=== PATIENT | female | born 1965 | race Caucasian/White ===

== ENCOUNTER 2016-06-02 09:59 | Day surgery (SDC) | payer MEDICARE, MEDICAID ==
[~2016-06-02] VITALS: Ht 162.6 cm; Wt 179.5 kg
[2016-06-02] VITALS (9 sets, daily range): BP systolic 111–150; BP diastolic 65–88; PULSE 55–76; TEMP 97.8
[~2016-06-02 09:59] MED LIST: ABILIFY 10MG TA10 MG PO; ALPRAZOLAM0.25 MG PO; BUDEPRION XL150 MG PO; CALCIUM1 CAP PO; CINNAMON500 MG PO; COUMADIN1 MG PO; COUMADIN4 MG PO; CRESTOR 10MG10 MG PO; DIFLUCAN200 MG PO; DITROPAN XL 5MG5 M1 PO; EFFIENT10 M1 PO; FUROSEMIDE40 MG PO; GABAPENTIN600 MG PO; GLUCOPHAGE500 MG/TAB PO; HAIR VITAMINS E1 TAB PO; HAIRSKINNAILS PO; HUMALOG100 U/ML SC; KLONOPIN 0.5MG0.5 MG PO; LANTUS100 U/ML SQ; LIPITOR 40MG TA40 MG PO; LISINOPRIL AND1 TAB PO; LISINOPRIL10 MG PO; LOMOTIL TAB 01 UDTAB PO; LOPRESSOR 550 MG/TAB PO; MAG-OX 400400 MG/TAB PO; MEDI-FIRST ASP325 MG PO; METFORMIN HCL500 M1 PO; NAPROXEN500 M1 PO; NEURONTIN300 MG/CAP PO; NEURONTIN600 MG/TAB PO; NIASPAN 500MG500 MG PO; NITROQUICK0.4 MG SL; OMEPRAZOLE40 MG PO; OXYBUTYNIN ER5 MG PO; PAXIL20 MG PO; PLAVIX 75MG TAB75 MG PO; TRILIPIX 135MG PO; XANAX .25M0.25 MG/TA PO; ZESTRIL 10MG10 MG PO; [UNRECOGNIZED DRUG - OTHER] PO
[2016-06-02 10:32] LABS: HEMATOCRIT 43.7 % (37.0-47.0); HEMOGLOBIN 13.9 g/dl (12.5-16.0); MEAN CELL VOLUME 83 fl (80.0-100.0); MEAN CORPUSCULAR HEMOGLOBIN 26 pg (27.0-31.0); MEAN CORPUSCULAR HGB CONC 32 g/dl (33.0-37.0); MEAN PLATELET VOLUME 10.8 fl (7.4-10.4); PLATELET COUNT 259 K/mm3 (130-400); RED BLOOD COUNT 5.27 M/mm3 (4.10-5.30); REDCELL DISTRIBUTION WIDTH-CV 14.1 % (11.5-14.5); WHITE BLOOD COUNT 6.5 K/mm3 (4.8-10.8)
[2016-06-02 10:41] LABS: CALCIUM 9.5 mg/dL (8.4-10.2); CREATININE, serum 0.76 mg/dL (0.52-1.25); POTASSIUM 4.7 mmol/L (3.4-5.0)
[2016-06-02 10:47] LABS: INR 1.2 (0.8-3.0)
[2016-06-02] MEDS ORDERED: PRILOSEC 20MG20 MG PO (12:29)
[2016-06-02] MEDS ORDERED: WELLBUTRIN XL150 MG PO ×2 (12:31→12:32)
[2016-06-02] MEDS ORDERED: CALCIUM 600MG+D1 TAB PO (12:34)
[2016-06-02] MEDS ORDERED: PAXIL 10MG10 MG PO (12:38)
[2016-06-02] MEDS ORDERED: MULTI VITAMINS1 TAB PO (12:41)
[2016-06-02] MEDS ORDERED: FLEXERIL5 MG PO (12:42)
[2016-06-02] MEDS ORDERED: DRISTAN 12-HOUR15 ML NS (12:43)
[2016-06-02] MEDS ORDERED: ELOCON0.1% TP (12:44)
[2016-06-02] MEDS ORDERED: ANUSOL HC CREAM30 GM TP (12:46)
== END 2016-06-02 16:55 | disposition home or self-care (01) ==
LOC: EUO 09:59 → COL.RAD 11:00 → EUO 16:55
PROVIDERS: Internal Medicine Cardiovascular Disease
DX: I25.10 Atherosclerotic heart disease of native coronary artery without angina pectoris (principal); I10 Essential (primary) hypertension; E78.2 Mixed hyperlipidemia; G47.33 Obstructive sleep apnea (adult) (pediatric); R07.89 Other chest pain; Z87.891 Personal history of nicotine dependence; Z95.5 Presence of coronary angioplasty implant and graft; Z79.899 Other long term (current) drug therapy; Z79.4 Long term (current) use of insulin
CPT/HCPCS: C1894; J1644; J3010; Q9967

== ENCOUNTER 2018-02-26 19:38 | Inpatient (IN) | payer MEDICARE, MEDICAID ==
[2018-02-26] VITALS (167 sets, daily range): BP systolic 116–118; BP diastolic 75–82; PULSE 104–105; TEMP 98.7; O2SAT 63–100
[~2018-02-26] VITALS: Ht 167.6 cm; Wt 182.9 kg
[~2018-02-26 19:38] MED LIST changes: +ANUSOL HC CREAM30 GM TP; +CALCIUM 600MG+D1 TAB PO; +DRISTAN 12-HOUR15 ML NS; +ELOCON0.1% TP; +FLEXERIL5 MG PO; +MULTI VITAMINS1 TAB PO; +PAXIL 10MG10 MG PO; +PRILOSEC 20MG20 MG PO; +WELLBUTRIN XL150 MG PO
[2018-02-26] MEDS ORDERED: LOMOTIL 0.025 M1 TAB PO (21:23)
[2018-02-26] MEDS ORDERED: NORCO 325 MG-7.1 TAB PO (21:23)
[2018-02-26] MEDS ORDERED: FLEXERIL 1010 MG/TAB PO (21:26)
[2018-02-26] MEDS ORDERED: GLUCOPHAGE XR500 M1 PO (21:27)
[2018-02-26] MEDS ORDERED: [UNRECOGNIZED DRUG - OTHER] SQ (21:35)
[2018-02-26] MEDS ORDERED: DILTIAZEM CD PO (21:39)
[2018-02-26 22:44] LABS: HEMATOCRIT 26.8 % (37.0-47.0); HEMOGLOBIN 8.4 g/dl (12.5-16.0)
[2018-02-26 23:10] LABS: TROPONIN-I 0.41 ng/mL (0.000-0.034)
[2018-02-27] VITALS (1050 sets, daily range): BP systolic 96–135; BP diastolic 49–78; PULSE 96–114; TEMP 97.3–99.8; O2SAT 87–100
[2018-02-27 04:27] LABS: AMORPHOUS CRYSTAL Present /uL; PH 5 (5-8); SQUAMOUS EPITHELIAL 0-2 /hpf; URINE APPEARANCE Turbid; URINE BACTERIA None Seen /hpf; URINE BILIRUBIN Negative (NEGATIVE); URINE BLOOD Negative (NEGATIVE); URINE COLOR Yellow; URINE GLUCOSE Negative (NEGATIVE); URINE KETONE Negative (NEGATIVE); URINE LEUKOCYTE ESTERASE 2+ (NEGATIVE); URINE NITRATE Negative (NEGATIVE); URINE PROTEIN(semi-quant) Negative (NEGATIVE); URINE UROBILINOGEN Negative (NEGATIVE)
[2018-02-27 05:26] LABS: BASO % 0.2 % (0.0-2.0); EOS % 0.1 % (0-4.0); GRAN # 12.5 (1.4-6.5); GRAN % 72.2 % (42.2-75.2); LYMPH # 3.5 (1.2-3.4); MEAN CELL VOLUME 81 fl (80.0-100.0); MEAN CORPUSCULAR HGB CONC 32 g/dl (33.0-37.0); MEAN PLATELET VOLUME 10.7 fl (7.4-10.4); MONO # 1.2 (0.1-0.6); MONO % 6.9 % (1.7-9.3); PLATELET COUNT 260 K/mm3 (130-400); RED BLOOD COUNT 3.28 M/mm3 (4.10-5.30); REDCELL DISTRIBUTION WIDTH-CV 15.1 % (11.5-14.5)
[2018-02-27 05:27] LABS: HEMATOCRIT 26.5 % (37.0-47.0); HEMOGLOBIN 8.4 g/dl (12.5-16.0); MEAN CORPUSCULAR HEMOGLOBIN 26 pg (27.0-31.0)
[2018-02-27 05:39] LABS: ALBUMIN 2.5 gm/dL (3.5-5.0); BILIRUBIN,TOTAL 0.4 mg/dL (0.0-1.0); CALCIUM 6.9 mg/dL (8.4-10.2); POTASSIUM 4.5 mmol/L (3.4-5.0); TOTAL PROTEIN 5.3 gm/dL (6.4-8.2)
[2018-02-27 05:46] LABS: MAGNESIUM 1.6 mg/dL (1.6-2.3)
[2018-02-27 06:09] LABS: TROPONIN-I 1.97 ng/mL (0.000-0.034)
[2018-02-27 06:22] LABS: COLLECTION METHOD CATHETER
[2018-02-27 11:59] LABS: HEMATOCRIT 27.4 % (37.0-47.0); HEMOGLOBIN 8.6 g/dl (12.5-16.0)
[2018-02-27 17:39] LABS: HEMATOCRIT 24.6 % (37.0-47.0); HEMOGLOBIN 7.7 g/dl (12.5-16.0)
[2018-02-28] VITALS (554 sets, daily range): BP systolic 112–136; BP diastolic 54–91; PULSE 67–98; TEMP 97.4–99.1; O2SAT 83–99
[2018-02-28 00:31] LABS: HEMATOCRIT 26.5 % (37.0-47.0); HEMOGLOBIN 8.5 g/dl (12.5-16.0)
[2018-02-28 05:48] LABS: MEAN CELL VOLUME 83 fl (80.0-100.0); MEAN CORPUSCULAR HGB CONC 31 g/dl (33.0-37.0); MEAN PLATELET VOLUME 10.2 fl (7.4-10.4); PLATELET COUNT 182 K/mm3 (130-400); RED BLOOD COUNT 3.12 M/mm3 (4.10-5.30); REDCELL DISTRIBUTION WIDTH-CV 15.4 % (11.5-14.5)
[2018-02-28 05:55] LABS: HEMATOCRIT 25.9 % (37.0-47.0); HEMOGLOBIN 8.1 g/dl (12.5-16.0); MEAN CORPUSCULAR HEMOGLOBIN 26 pg (27.0-31.0)
[2018-02-28 05:59] LABS: ALBUMIN 2.6 gm/dL (3.5-5.0); BILIRUBIN,TOTAL 0.5 mg/dL (0.0-1.0); CALCIUM 7.5 mg/dL (8.4-10.2); CREATININE, serum 0.81 mg/dL (0.52-1.25); MAGNESIUM 1.6 mg/dL (1.6-2.3); POTASSIUM 4.3 mmol/L (3.4-5.0); TOTAL PROTEIN 5.3 gm/dL (6.4-8.2)
[2018-02-28 06:13] LABS: TROPONIN-I 6.2 ng/mL (0.000-0.034)
[2018-02-28 06:36] LABS: INR 1.1 (0.8-3.0); PROTHROMBIN TIME 12.8 SECONDS (9.7-12.8)
[2018-02-28 07:10] LABS: BAND 1 % (0-10); EOSINOPHIL 3 % (0-4); LYMPHOCYTE 22 % (20.0-51.0); NEUTROPHILS 67 % (42.0-75.2)
[2018-02-28 07:11] LABS: HYPOCHROMIA 2+; PLATELET ESTIMATE NORMAL (NORMAL)
[2018-02-28 11:29] LABS: HEMATOCRIT 26.2 % (37.0-47.0); HEMOGLOBIN 8.1 g/dl (12.5-16.0)
[2018-02-28 17:28] LABS: HEMOGLOBIN 8.1 g/dl (12.5-16.0)
[2018-02-28 23:32] LABS: HEMATOCRIT 24.5 % (37.0-47.0); HEMOGLOBIN 7.8 g/dl (12.5-16.0)
[2018-03-01] VITALS (491 sets, daily range): BP systolic 36–153; BP diastolic 54–82; PULSE 63–76; TEMP 97.3–99.5; O2SAT 86–100
[2018-03-01 06:15] LABS: BASO % 0.3 % (0.0-2.0); EOS # 0.3 (0.0-0.7); EOS % 3.3 % (0-4.0); GRAN # 4.6 (1.4-6.5); GRAN % 48.5 % (42.2-75.2); LYMPH # 3.7 (1.2-3.4); LYMPH % 38.2 % (20.0-51.0); MEAN CELL VOLUME 84 fl (80.0-100.0); MEAN CORPUSCULAR HGB CONC 31 g/dl (33.0-37.0); MEAN PLATELET VOLUME 10.9 fl (7.4-10.4); MONO # 0.9 (0.1-0.6); MONO % 9.1 % (1.7-9.3); PLATELET COUNT 176 K/mm3 (130-400); RED BLOOD COUNT 3.25 M/mm3 (4.10-5.30); REDCELL DISTRIBUTION WIDTH-CV 15.7 % (11.5-14.5)
[2018-03-01 06:18] LABS: HEMATOCRIT 27.2 % (37.0-47.0); HEMOGLOBIN 8.5 g/dl (12.5-16.0); MEAN CORPUSCULAR HEMOGLOBIN 26 pg (27.0-31.0)
[2018-03-01 06:30] LABS: CALCIUM 8.1 mg/dL (8.4-10.2); CREATININE, serum 0.85 mg/dL (0.52-1.25); POTASSIUM 4.1 mmol/L (3.4-5.0)
[2018-03-01 06:49] LABS: TROPONIN-I 3.2 ng/mL (0.000-0.034)
[2018-03-02 00:45] VITALS: TEMP 98.3
[2018-03-02 01:17] VITALS: BP 111/52; PULSE 71; TEMP 97.7
[2018-03-02 04:41] VITALS: BP 122/59; PULSE 65; TEMP 97.5
[2018-03-02 06:11] LABS: BASO % 0.1 % (0.0-2.0); EOS # 0.3 (0.0-0.7); GRAN # 5.7 (1.4-6.5); GRAN % 57.1 % (42.2-75.2); LYMPH % 29.9 % (20.0-51.0); MEAN CELL VOLUME 84 fl (80.0-100.0); MEAN CORPUSCULAR HGB CONC 31 g/dl (33.0-37.0); MEAN PLATELET VOLUME 10.8 fl (7.4-10.4); MONO # 0.9 (0.1-0.6); MONO % 9.2 % (1.7-9.3); PLATELET COUNT 186 K/mm3 (130-400); RED BLOOD COUNT 3.23 M/mm3 (4.10-5.30); REDCELL DISTRIBUTION WIDTH-CV 15.7 % (11.5-14.5)
[2018-03-02 06:20] LABS: CALCIUM 8.3 mg/dL (8.4-10.2); CREATININE, serum 1.23 mg/dL (0.52-1.25); MAGNESIUM 1.6 mg/dL (1.6-2.3); POTASSIUM 3.9 mmol/L (3.4-5.0)
[2018-03-02 06:24] LABS: HEMOGLOBIN 8.4 g/dl (12.5-16.0); MEAN CORPUSCULAR HEMOGLOBIN 26 pg (27.0-31.0)
[2018-03-02 07:00] VITALS: BP 133/56; PULSE 75; TEMP 98.5
[2018-03-02 11:00] VITALS: BP 120/52; PULSE 76; TEMP 98.9
[2018-03-02] MEDS ORDERED: ASPIRIN 81M81 MG/TA2 PO (14:25)
[2018-03-02] MEDS ORDERED: FERROUS SU325 MG/TAB PO (14:25)
[2018-03-02 14:58] VITALS: BP 130/55; PULSE 75; TEMP 98.9
== END 2018-03-02 17:10 | disposition home or self-care (01) | DRG 919 ==
LOC: ICU 19:38 → MEDICAL 03-01 14:43
PROVIDERS: Internal Medicine; Nurse Practitioner; Nurse Practitioner Family
PROC: 02HV33Z Insertion of Infusion Device into Superior Vena Cava, Percutaneous Approach (ICD-10-PCS; principal; 2018-02-26)
DX: K91.840 Postprocedural hemorrhage of a digestive system organ or structure following a digestive system procedure (principal); I21.4 Non-ST elevation (NSTEMI) myocardial infarction; J96.01 Acute respiratory failure with hypoxia; N17.9 Acute kidney failure, unspecified; Z68.44 Body mass index [BMI] 60.0-69.9, adult; D62 Acute posthemorrhagic anemia; E66.2 Morbid (severe) obesity with alveolar hypoventilation; I10 Essential (primary) hypertension; I25.10 Atherosclerotic heart disease of native coronary artery without angina pectoris; E11.65 Type 2 diabetes mellitus with hyperglycemia; Z95.5 Presence of coronary angioplasty implant and graft; F31.9 Bipolar disorder, unspecified; E78.5 Hyperlipidemia, unspecified; E87.5 Hyperkalemia; Z79.4 Long term (current) use of insulin; F41.8 Other specified anxiety disorders; E83.42 Hypomagnesemia; K75.81 Nonalcoholic steatohepatitis (NASH)
CPT/HCPCS: 99239; A9502; C9113; J1815; J2543; J2785; J3370; J3475; J7030; J7040; J7060; P9016

== ENCOUNTER 2018-07-15 10:26 | Day surgery (SDC) | payer MEDICARE, MEDICAID ==
[~2018-07-15] VITALS: Ht 167.6 cm; Wt 188.2 kg
[~2018-07-15 10:26] MED LIST changes: +ASPIRIN 81M81 MG/TA2 PO; +DILTIAZEM CD PO; +FERROUS SU325 MG/TAB PO; +FLEXERIL 1010 MG/TAB PO; +GLUCOPHAGE XR500 M1 PO; +LOMOTIL 0.025 M1 TAB PO; +NORCO 325 MG-7.1 TAB PO; +[UNRECOGNIZED DRUG - OTHER] SQ
[2018-07-15] MEDS ORDERED: THEO-DUR 3300 MG/TAB PO (11:20)
[2018-07-15] MEDS ORDERED: ALDACTONE 25MG25 M1 PO (11:21)
[2018-07-15] MEDS ORDERED: CEPHALEXIN500 M1 PO (11:22)
[2018-07-15] MEDS ORDERED: PRAVACHOL 20MG20 MG PO (11:23)
[2018-07-15 11:29] VITALS: BP 151/78; PULSE 87; TEMP 98
[2018-07-15 13:30] VITALS: BP 94/49; PULSE 80; TEMP 97.2
--- NOTE | 2018-07-15 13:30 | NUR ---
Pt to GI bay 8 via cart from OR. Pt awake and alert. Denies pain or nausea. O2 on at 6 liters via mask. Pt does not want PO fluids or food at this time. Will continue to monitor. Call light within reach.
[2018-07-15 13:45] VITALS: BP 98/59; PULSE 80
--- NOTE | 2018-07-15 13:45 | NUR ---
O2 decreased to 2 liters via nasal canula. Will continue to monitor. Pt denies needs at this time. Call light within reach.
[2018-07-15 14:00] VITALS: BP 105/61; PULSE 82
--- NOTE | 2018-07-15 14:00 | NUR ---
Pt continues to rest. Denies needs. Friends in room. Will continue to monitor. Call light within reach.
[2018-07-15 14:15] VITALS: BP 120/61; PULSE 81
--- NOTE | 2018-07-15 14:15 | NUR ---
Pt resting. Denies needs. Call light within reach.
--- NOTE | 2018-07-15 14:30 | NUR ---
Discharge instructions reviewed. Pt voices understanding. IV site discontinued with all parts intact. Pt up to dress with nurse assist. Will continue to monitor. Call light within reach.
--- NOTE | 2018-07-15 14:45 | NUR ---
Pt escorted to private car via wheel chair. Pt accompanied home by her friend.
== END 2018-07-15 14:45 | disposition home or self-care (01) ==
LOC: SDCO 10:26
DX: D12.2 Benign neoplasm of ascending colon (principal); D12.3 Benign neoplasm of transverse colon; D12.5 Benign neoplasm of sigmoid colon; K63.5 Polyp of colon; K57.30 Diverticulosis of large intestine without perforation or abscess without bleeding; J44.9 Chronic obstructive pulmonary disease, unspecified; E11.9 Type 2 diabetes mellitus without complications; E88.81 Metabolic syndrome and other insulin resistance; E66.9 Obesity, unspecified; Z79.4 Long term (current) use of insulin; Z79.82 Long term (current) use of aspirin; F41.9 Anxiety disorder, unspecified; I25.10 Atherosclerotic heart disease of native coronary artery without angina pectoris; E78.00 Pure hypercholesterolemia, unspecified; I10 Essential (primary) hypertension; E78.1 Pure hyperglyceridemia; F32.9 Major depressive disorder, single episode, unspecified; K76.0 Fatty (change of) liver, not elsewhere classified; Z85.41 Personal history of malignant neoplasm of cervix uteri; Z95.5 Presence of coronary angioplasty implant and graft; Z68.44 Body mass index [BMI] 60.0-69.9, adult
CPT/HCPCS: J2250; J2704

== ENCOUNTER 2022-08-08 12:04 | Day surgery (SDC) | payer MEDICARE, MEDICAID ==
[2022-08-07] VITALS (10 sets, daily range): BP systolic 121–157; BP diastolic 69–95; PULSE 67–86; TEMP 97.3–97.8
--- NOTE | 2022-08-07 19:30 | NUR ---
Patient arrived to the floor at 1900 with PACU nurse Kathi, with oxymask at 7LPM via oxymask, dressing to left shoulder CDI with arm sling and ice pack on, IV to right shoulder with LR running via gravity, urine sample sent to the lab, acknowledge hospitalist orders, denies further need at this time, will continue to monitor.
[2022-08-07 19:52] LABS: COLLECTION METHOD CLEAN CATCH
[2022-08-07 19:59] LABS: MUCOUS Present (NOT PRESENT); SQUAMOUS EPITHELIAL 0-2 /hpf (0-10); URINE BACTERIA Rare /hpf (NONE SEEN)
[2022-08-07 20:00] LABS: PH 6.5 (5-8); URINE APPEARANCE Cloudy (CLEAR/HAZY); URINE BLOOD TRACE-INTACT (NEGATIVE); URINE COLOR Yellow (YELLOW); URINE GLUCOSE Negative (NEGATIVE); URINE KETONE Negative (NEGATIVE); URINE NITRATE Positive (NEGATIVE); URINE PROTEIN(semi-quant) 2+ (NEGATIVE); URINE UROBILINOGEN 0.2 (NEGATIVE)
--- NOTE | 2022-08-07 20:30 | NUR ---
pt care taken over by this nurse, report from wilman AMBRIZ.
[2022-08-07 23:08] LABS: BASO % 0.3 % (0.0-2.0); EOS % 0.2 % (0.0-4.0); GRAN # 9.6 K/mm3 (1.4-6.5); HEMATOCRIT 38.3 % (37.0-47.0); LYMPH # 1.1 K/mm3 (1.2-3.4); LYMPH % 9.1 % (20.0-51.0); MEAN CELL VOLUME 89 fl (80.0-100.0); MEAN CORPUSCULAR HEMOGLOBIN 28 pg (27-31); MEAN CORPUSCULAR HGB CONC 31 g/dl (33.0-37.0); MEAN PLATELET VOLUME 10.2 fl (7.4-10.4); MONO # 0.9 K/mm3 (0.1-0.6); PLATELET COUNT 293 K/mm3 (130-400); RED BLOOD COUNT 4.31 M/mm3 (4.10-5.30); REDCELL DISTRIBUTION WIDTH-CV 14.9 % (11.5-14.5)
[2022-08-07 23:13] LABS: CALCIUM 8.9 mg/dL (8.4-10.2); CREATININE, serum 0.95 mg/dL (0.57-1.11); POTASSIUM 4.3 mmol/L (3.5-4.5)
[~2022-08-08] VITALS: Ht 165.1 cm; Wt 201.3 kg
[2022-08-08] VITALS (12 sets, daily range): BP systolic 112–151; BP diastolic 57–77; PULSE 82–90; TEMP 97.9–99
--- NOTE | 2022-08-08 11:29 | NUR ---
Initial visit; Patient sleeping, Learning Support Assistant left card offering God's blessings and information regarding the availability of Spiritual Care at our hospital.
[~2022-08-08 12:04] MED LIST changes: +ALDACTONE 25MG25 M1 PO; +ALL DAY ALLERGY10 M3 PO; +ATARAX 25MG25 MG/TAB PO; +CARDIZEM CD 24240 MG PO; +CENTANY AT2% TP; +CEPHALEXIN500 M1 PO; +CRANBERRY500 M3 PO; +LYRICA200 MG PO; +MACROBID 1100 MG/CAP PO; +NASONEX SPRAY17 GM NS; +NATURAL MAGNES200 MG PO; +NOVOLOG FLEX100 U/ML SQ; +PAXIL40 MG PO; +PHARMASSURE ZIN50 MG PO; +PRAVACHOL 20MG20 MG PO; +ROXICODONE 55 MG/TAB PO; +THEO-DUR 3300 MG/TAB PO; +TYLENOL 325MG325 MG PO; +ZYLOPRIM 300MG300 MG PO
--- NOTE | 2022-08-08 13:03 | NUR ---
PT IN BED. WORKED WITH THERAPY THIS AM. BASELINE CPAP WITH O2 @ 2L HS. PAIN WELL CONTROLLED WITH PO PAIN MEDS. HOSPITAL AIDES AND ASSISTANTS TEACHER AWARE THAT PT USES PUBLIC TRANSPORTATION AND SHE DOES NOT HAVE WEEKEND ACESS. SHE IS PLANNING ON STAYING UNTIL WEDNESDAY. DRESSING TO LEFT SHOULDER CDI. PT IS MOBIDLY OBESE.
--- NOTE | 2022-08-08 13:15 | NUR ---
PT IN BED ON ROOM AIR APPROX 20 MIN. SPO2 75% O2 BACK ON @ 3 LPM. SPO2 90% @ REST.
--- NOTE | 2022-08-08 15:07 | NUR ---
SW met with pt for intake. Pt reports living in [place], [place] with son Robert Lang, also NOK and confirmed phone number as [phone]. Pt denied having stairs at home and reports not being independent and having established HH through [facility] to assist with daily care. Pt reports having oxygen at home during the evening at 2L. Pt reports using a walker, having a built in shower and a toilet riser. Pt reports sleeping in a recliner for over 20 years and is satisfied with this option. Pt reports PCP as Dr. French. Pt reports pharmacy as [facility] and denies any issues. Pt reports DPOA and José Manuel Trujillo ([facility]) as designee and reports PCP should have on file. Pt denies any needs or questions. DC plan HOME with son and HH [facility]
--- NOTE | 2022-08-08 15:11 | NUR ---
[facility] Nurse called stating pt was to discharge today due to same day surgery. He explained pt reports her transport option only runs Wed- Wed. JOHANN spoke with pt who repeated above information and informed staff was aware of this prior to surgery. SW reported she would clarify a few things and get back to pt. JOHANN spoke with Yaw Negron) who encouraged her to call Katie (jennifer) JOHANN spoke with Katie and informed of situation and SDC status. Katie encouraged utilizing [employer] transportation. JOHANN received call from [facility] (nurse) stating client will need 3 L of O2. JOHANN faxed signed O2 script to Demarco SOW and he called back informing SW due to pt having a contract with [facility], he would be unable to satisfy script. JOHANN called [facility] to see if there would be an option to receive O2 for transport; no week end staff. JOHANN attempted to call son JOE Bland, and phone went straight to . JOHANN informed Yaw negron) and Evans (nurse) of results and concurred pt will have to stay until Wednesday.
--- NOTE | 2022-08-08 20:00 | NUR ---
PT IN SPECIALTY BED, MORBIDLY OBESE. IS ALERT AND ORIENTED X4. HAS AQUACEL DRSG TO LT SHOULDER, LT ARM IN SLING. TAKING ORAL FLUIDS WELL, CAPPED IVF, HAS SMALL INT TO KATELYN, WAS PREVIOUSLY LEAKING, NEW DRSG APPLIED, FLUSHES WELL NOW. HAS MULTIPLE REDDENED AREAS TO CREASES IN LEGS, ABD FOLDS, ARM PITS AND GROIN. CLEANSED AREAS AND APPLIED DESITIN POWDER. HAS PUREWICK IN PLACE. PT WEARS A CPAP AT NIGHT WITH OXYGEN BLED IN. LIMITED UPPER EXTREMITY ROM. DENIES PAIN AT THIS TIME.
[2022-08-09] VITALS (8 sets, daily range): BP systolic 91–152; BP diastolic 51–70; PULSE 84–115; TEMP 97.9–99.8
--- NOTE | 2022-08-09 01:30 | NUR ---
TAKES SCHEDULED ES TYLENOL WITHOUT PROBLEM. WEARING CPAP.
--- NOTE | 2022-08-09 06:37 | NUR ---
SCHEDULED AM MED GIVEN. PT DENIES PAIN AT THIS TIME.
--- NOTE | 2022-08-09 07:57 | NUR ---
Patient A&Ox4. VSS 3L NC O2. IV intact, slight drainage. LF arm sling, dressing CDI. Patient assisting with moving in bed, bariatiric bed. Nursing staff assisting with ordering breakfast. Purewick in place. Call light within reach
--- NOTE | 2022-08-09 11:21 | NUR ---
Gas Operation Manager rounds: RN in room with Patient. No Gas Operation Manager visit offered or completed.
[2022-08-10 04:02] VITALS: BP 121/57; PULSE 86; TEMP 99.3
[2022-08-10 05:00] VITALS: BP_SYST 110
[2022-08-10 07:30] VITALS: BP 110/51; PULSE 95; TEMP 98.3
--- NOTE | 2022-08-10 07:44 | NUR ---
NURSING SHIFT ASSESSMENT COMPLETED. THE PLAN OF CARE AND EVENING MEDICAITONS DISCUSSED. WILL MONITOR. THE CALL LIGHT AND PERSONAL BELONGINGS WITHIN REACH.
[2022-08-10 08:40] VITALS: BP_SYST 110
--- NOTE | 2022-08-10 09:43 | NUR ---
JOHANN staffed with the patient's RN. The patient is ready to discharge today and needs assistance with getting her oxygen coordinated. JOHANN contacted Demarco at [facility] to follow up about the oxygen order they received for the patient. Demarco confirmed that they are unable to fill the order, because the patient is already receiving home oxygen from [facility] in [place]. JOHANN met with the patient to address the above and review discharge plan. The patient confirms that she will be going home with her son. She clarified that she already has home oxygen from [facility], but does not have a portable tank to go home on. She states that she will be taking [place] public transport home and they will arrive at the hospital around 1100. She states that she has already been in contact with them and asks that this SW contact [facility] to have them deliver a portable tank to [facility] by 0945 for them to bring up to the hospital. JOHANN contacted Aminah at [facility] and requested the above. Aminah states that they will deliver a portable tank to [place] [facility] by that time. She requests a new order form and the patient's records. JOHANN faxed the patient's records and the order form to [facility]. RN updated. JOHANN updated the patient. The patient also clarified that she has in home services for a bath aide and running errands. She plans to receive outpatient therapy at [facility] and already has appointments set up. She had no other concerns for JOHANN. The patient is to discharge back home with her son today, 08/10, with outpatient therapy at [facility]. No additional needs at this time.
--- NOTE | 2022-08-10 10:10 | NUR ---
Pt. ready for discharge. No iv access. Pt. given and reviewed the discharge paperwork. Pt. voices understanding. Pt. dressed and waiting for ride.
--- NOTE | 2022-08-10 10:49 | NUR ---
Pt. escorted out by wheelchair.
== END 2022-08-10 10:50 | disposition home health service (06) ==
LOC: SDCO 12:04 → SURG 12:05 → SDCO 12:10
PROVIDERS: Nurse Practitioner Family; Orthopaedic Surgery
DX: M24.412 Recurrent dislocation, left shoulder (principal); S46.012A Strain of muscle(s) and tendon(s) of the rotator cuff of left shoulder, initial encounter; S43.422A Sprain of left rotator cuff capsule, initial encounter; E11.9 Type 2 diabetes mellitus without complications; G47.33 Obstructive sleep apnea (adult) (pediatric); E78.5 Hyperlipidemia, unspecified; I25.10 Atherosclerotic heart disease of native coronary artery without angina pectoris; I25.2 Old myocardial infarction; I89.0 Lymphedema, not elsewhere classified; E66.01 Morbid (severe) obesity due to excess calories; J96.01 Acute respiratory failure with hypoxia; J44.9 Chronic obstructive pulmonary disease, unspecified; K75.81 Nonalcoholic steatohepatitis (NASH); K21.9 Gastro-esophageal reflux disease without esophagitis; I11.0 Hypertensive heart disease with heart failure; I50.9 Heart failure, unspecified; F41.9 Anxiety disorder, unspecified; N39.0 Urinary tract infection, site not specified; F31.9 Bipolar disorder, unspecified; Z79.899 Other long term (current) drug therapy; Z87.891 Personal history of nicotine dependence; Z79.82 Long term (current) use of aspirin; Z68.44 Body mass index [BMI] 60.0-69.9, adult; Z95.5 Presence of coronary angioplasty implant and graft; Z79.4 Long term (current) use of insulin; X58.XXXA Exposure to other specified factors, initial encounter; Y93.I9 Activity, other involving external motion; Y92.9 Unspecified place or not applicable; Z85.42 Personal history of malignant neoplasm of other parts of uterus; Z91.81 History of falling
CPT/HCPCS: OP; A6197; A9284; C1713; C1776; C9290; J0330; J0690; J0696; J1170; J2370; J2405; J2704; J3370; J7030; J7120

== ENCOUNTER 2023-05-27 16:47 | Inpatient (IN) | payer MEDICARE, MEDICAID ==
[~2023-05-27] VITALS: Ht 165.1 cm; Wt 198.0 kg
[2023-05-27 18:14] LABS: BASO % 0.5 % (0.0-2.0); EOS # 0.2 K/mm3 (0.0-0.7); EOS % 2.8 % (0.0-4.0); HEMOGLOBIN 10.4 g/dl (12.5-16.0); LYMPH # 1.8 K/mm3 (1.2-3.4); LYMPH % 22.7 % (20.0-51.0); MEAN CELL VOLUME 80 fl (80.0-100.0); MEAN CORPUSCULAR HEMOGLOBIN 24 pg (27-31); MEAN CORPUSCULAR HGB CONC 30 g/dl (33.0-37.0); MEAN PLATELET VOLUME 10.4 fl (7.4-10.4); MONO # 0.9 K/mm3 (0.1-0.6); MONO % 11.6 % (1.7-9.3); PLATELET COUNT 253 K/mm3 (130-400); RED BLOOD COUNT 4.41 M/mm3 (4.10-5.30); REDCELL DISTRIBUTION WIDTH-CV 18.6 % (11.5-14.5)
[2023-05-27] MEDS ORDERED: Furosemide 100 MG/10 ML VIAL IV ONE (18:15)
[2023-05-27 18:22] LABS: HEMATOCRIT 35.2 % (37.0-47.0)
[2023-05-27 18:32] LABS: ALBUMIN 3.1 gm/dL (3.4-4.8); BILIRUBIN,TOTAL 0.9 mg/dL (0.2-1.2); CALCIUM 9.5 mg/dL (8.4-10.2); CREATININE, serum 1.29 mg/dL (0.57-1.11); POTASSIUM 3.3 mmol/L (3.5-4.5); TOTAL PROTEIN 7.4 gm/dL (6.2-8.1)
[2023-05-27 18:38] LABS: TROPONIN-I 0.03 ng/mL (0.00-0.033)
[2023-05-27] MEDS ORDERED: Melatonin 3 MG TAB PO PRN (20:30)
[2023-05-27] MEDS ORDERED: Ondansetron 4 MG/2 ML VIAL IV PRN (20:30)
[2023-05-27] MEDS ORDERED: hydrALAZINE 20 MG/ML 1 ML VIAL IV PRN (20:30)
[2023-05-27] MEDS ORDERED: Acetaminophen 325 MG TAB PO PRN (20:30)
[2023-05-27] MEDS ORDERED: Magnesium Sulfate 4% 50 ML IV ONE (21:30)
[2023-05-27] MEDS ORDERED: *Potassium Replacement Protocol MC SCH (21:30)
[2023-05-27] MEDS ORDERED: Potassium Bicarbonate/Citrate 20 MEQ Effervescent TAB PO SCH (21:30)
[2023-05-27] MEDS ORDERED: Albuterol/Ipratropium 3 MG-0.5 MG/3 ML Neb Soln IH PRN (21:45)
[2023-05-27] MEDS ORDERED: Nystatin Powder **** subs to Miconazole Powder TOP PRN (22:00)
[2023-05-27] MEDS ORDERED: Miconazole 2% Topical Powder BOTTLE TP PRN (22:00)
[2023-05-27] MEDS ORDERED: Dextrose (Glucose) 15 GM (4 x 3.75 GM) Chewable TABLET PACK PO PRN (22:15)
[2023-05-27] MEDS ORDERED: 00186-0370-20 IH (22:15)
[2023-05-27] MEDS ORDERED: Dextrose 50% Water 25 GM/50 ML SYRINGE IV PRN (22:15)
[2023-05-27] MEDS ORDERED: Glucagon 1 MG VIAL IM PRN (22:15)
[2023-05-27] MEDS ORDERED: KLOR-CON M1010 MEQ PO (22:17)
[2023-05-27] MEDS ORDERED: PROBIOTIC-SUNMARK (22:18)
[2023-05-27] MEDS ORDERED: PROBIOTIC ACID1 EAC3 PO (22:19)
[2023-05-27] MEDS ORDERED: BUSPAR10 MG PO (22:37)
[2023-05-27] MEDS ORDERED: CARDIZEM CD 18180 MG PO (22:41)
[2023-05-27] MEDS ORDERED: COLACE 100100 MG/CAP PO (22:42)
[2023-05-27] MEDS ORDERED: DOXYCYCLINE 10100 MG PO (22:43)
[2023-05-27] MEDS ORDERED: ELIQUIS 5MG PO (22:43)
[2023-05-27] MEDS ORDERED: HUMALOG100 U/ML SQ (22:45)
[2023-05-27] MEDS ORDERED: THEO-24 30300 MG/CAP PO (22:50)
[2023-05-27] MEDS ORDERED: ALDACTONE 25MG25 M1 PO (22:51)
[2023-05-27] MEDS ORDERED: WELLBUTRIN XL300 M1 PO (22:51)
[2023-05-27 23:58] VITALS: BP 100/72; PULSE 103; TEMP 97.4
[2023-05-28] VITALS (9 sets, daily range): BP systolic 117–138; BP diastolic 76–869; PULSE 98–113; TEMP 97.4–98.6
[2023-05-28] MEDS ORDERED: Insulin Aspart (NovoLOG) SQ SCH
--- NOTE | 2023-05-28 | NUR ---
PT ARRIVED VIA STRETCHER FROM ER. MOVED TO MEDICAL BARIATRIC BED. PT UNABLE TO BEAR WEIGHT TO LLE, HAS ELECTRIC SCOOTER IN ROOM. BLE DRESSED WITH ABD PADS, KERLEX AND COBAN. RLE DRSG SATURATED WITH SEROUS DRAINAGE. DRESSING CHANGED. SKIN WITH BLISTERS AND REDNESS, NO LARGE WOUNDS NOTED. LLE DRESSING CHANGED, NO DRAINAGED NOTED. SOME CRUSTED AREAS WITH REDNESS THROUGHOUT LOWER LEG. FEET EDEMATOUS VS OBESE, GOOD PULSES AND CAPILLARY REFILL. PT C/O PAIN IN BACK AND LEGS, WILL FOLLOW WITH [facility] FOR ORDERS. PT CURRENTLY HAS MAGNESIUM INFUSING TO R A/C PIV. SOME BLOODY DRAINAGE UNDER DRESSING, BUT IV INFUSING WELL. PT HAS GLASSES AND PERSONAL CELL PHONE AT BEDSIDE.
[2023-05-28] MEDS ORDERED: Apixaban 5 MG TAB PO SCH (00:33)
[2023-05-28] MEDS ORDERED: LASIX 40MG TABL40 MG PO (00:43)
[2023-05-28] MEDS ORDERED: oxyCODONE 5 MG TAB PO PRN ×2 (00:45→01:00)
[2023-05-28] MEDS ORDERED: hydrOXYzine HCl 25 MG TAB PO PRN (00:45)
[2023-05-28] MEDS ORDERED: BREZTRI AEROS10.7 GM IH (00:47)
[2023-05-28] MEDS ORDERED: OZEMPIC0.25 MG/02 SQ (00:48)
[2023-05-28] MEDS ORDERED: TRIAMC 0.025 454 TOP (00:50)
[2023-05-28 00:51] LABS: COLLECTION METHOD CATHETER
[2023-05-28] MEDS ORDERED: LYRICA 100MG C100 M1 PO (00:53)
[2023-05-28] MEDS ORDERED: BACTROBAN15 GM TOP (00:55)
[2023-05-28] MEDS ORDERED: NYSTATIN POWDER30 GM TOP (00:55)
[2023-05-28] MEDS ORDERED: DAZIDOX10 MG PO (00:58)
[2023-05-28 01:03] LABS: PH 6.5 (5.0-8.5); URINE APPEARANCE CLEAR (CLEAR/HAZY); URINE BLOOD 1+ (NEGATIVE); URINE COLOR YELLOW (YELLOW); URINE GLUCOSE NEGATIVE (NEGATIVE); URINE KETONE NEGATIVE (NEGATIVE); URINE NITRATE NEGATIVE (NEGATIVE); URINE PROTEIN(semi-quant) NEGATIVE (NEGATIVE); URINE UROBILINOGEN 0.2 E.U/dL (0.2-1.0)
[2023-05-28] MEDS ORDERED: Albuterol/Ipratropium 3 MG-0.5 MG/3 ML Neb Soln IH SCH (02:00)
--- NOTE | 2023-05-28 04:47 | NUR ---
INTERDRY CLOTH PLACED UNDER PANNIS AND UNDER BREAST ON RT SIDE. PT REPOSITIONED TO LEFT SIDE WITH WEDGE, REPORTS SOME RELIEF FROM PRESSURE ON BACK.
[2023-05-28] MEDS ORDERED: Omeprazole 20 MG **** subs to Pantoprazole 40 MG PO SCH (07:00)
[2023-05-28] MEDS ORDERED: Budesonide Neb Susp 0.5 MG/2 ML AMP IH SCH (07:00)
[2023-05-28] MEDS ORDERED: Formoterol 20 MCG,Budesonide 0.5 MG IH SCH (07:00)
--- NOTE | 2023-05-28 07:38 | NUR ---
Patient sitting up in bed A&OX4, reports pain 6/10 at this time, primary RN notified, mornign assessment completed please see chart.
[2023-05-28 08:56] LABS: BASO % 0.4 % (0.0-2.0); EOS # 0.4 K/mm3 (0.0-0.7); EOS % 5.2 % (0.0-4.0); GRAN # 3.9 K/mm3 (1.4-6.5); GRAN % 56.6 % (42.2-75.2); HEMATOCRIT 34.4 % (37.0-47.0); HEMOGLOBIN 10.2 g/dl (12.5-16.0); LYMPH # 1.8 K/mm3 (1.2-3.4); LYMPH % 25.5 % (20.0-51.0); MEAN CELL VOLUME 80 fl (80.0-100.0); MEAN CORPUSCULAR HEMOGLOBIN 24 pg (27-31); MEAN CORPUSCULAR HGB CONC 30 g/dl (33.0-37.0); MEAN PLATELET VOLUME 10.1 fl (7.4-10.4); MONO # 0.8 K/mm3 (0.1-0.6); PLATELET COUNT 255 K/mm3 (130-400); RED BLOOD COUNT 4.32 M/mm3 (4.10-5.30); REDCELL DISTRIBUTION WIDTH-CV 18.7 % (11.5-14.5)
--- NOTE | 2023-05-28 08:57 | NUR ---
PATIENT RESTING IN BED UPON ENTERING ROOM. MORNING MEDICATIONS HELD DUE TO NPO STATUS, PATIENT STATES SHE GETS NAUSEOUS WHEN TAKING MEDICATIONS ON EMPTY STOMACH. ARREGUIN CATHETER DRAINING WELL. POWDER AND INNERDRY PLACED IN PATIENTS ABDOMINAL AND BREAST FOLDS. CALL LIGHT WITHIN REACH. WILL CONTINUE TO MONITOR.
[2023-05-28 08:59] LABS: CALCIUM 9.5 mg/dL (8.4-10.2); CREATININE, serum 1.18 mg/dL (0.57-1.11); MAGNESIUM 1.4 mg/dL (1.6-2.6); POTASSIUM 3.6 mmol/L (3.5-4.5)
--- NOTE | 2023-05-28 08:59 | NUR ---
Patient stated that she get nauseous when she takes her medications on a empty stomach. Patient is NPO all morning medication held primary RN notified.
[2023-05-28] MEDS ORDERED: Pravastatin 20 MG TAB PO SCH (09:00)
[2023-05-28] MEDS ORDERED: Theophylline ER (24-HR) 300 MG TAB-CAP PO SCH (09:00)
[2023-05-28] MEDS ORDERED: Triamcinolone 0.1% Cream 15 GM TUBE TP SCH (09:00)
[2023-05-28] MEDS ORDERED: Doxycycline Monohydrate 100 MG CAP PO SCH (09:00)
[2023-05-28] MEDS ORDERED: Docusate Sodium 100 MG CAP PO SCH (09:00)
[2023-05-28] MEDS ORDERED: hydrOXYzine HCl 25 MG TAB PO SCH (09:00)
[2023-05-28] MEDS ORDERED: Budesonide/Glycopyrrolate/Formoterol **** subs to Budesonide + Umeclid/Vilant IH SCH (09:00)
[2023-05-28] MEDS ORDERED: busPIRone 5 MG TAB PO SCH (09:00)
[2023-05-28] MEDS ORDERED: buPROPion XL (24-HR) 150 MG TAB PO SCH ×2 (09:00→21:00)
[2023-05-28] MEDS ORDERED: Pregabalin 50 MG CAP PO SCH ×2 (09:00)
[2023-05-28] MEDS ORDERED: ARIPiprazole 10 MG TAB PO SCH (09:00)
[2023-05-28] MEDS ORDERED: Umeclidinium/Vilanterol 62.5-25 MCG INHALATION/INHALER IH SCH (09:00)
[2023-05-28] MEDS ORDERED: Nystatin Powder **** subs to Miconazole Powder TOP SCH (09:00)
[2023-05-28] MEDS ORDERED: WELLBUTRIN XL150 MG PO (09:29)
[2023-05-28] MEDS ORDERED: Furosemide 40 MG/4 ML VIAL IV SCH (09:30)
--- NOTE | 2023-05-28 10:23 | NUR ---
D: Initial visit: Nursing Secretary stopped by room on rounds. Pt was resting and content. A: Pt requested prayer for healing, but also for her son, who just had back surgery and it didn't take in her words. Nursing Secretary prayed for her and her son. Pt appreciated the visit. P: Nursing Secretary informed pt that if she needed anything to let her nurse know. Nursing Secretary will follow up as needed.
[2023-05-28] MEDS ORDERED: Magnesium Sulfate 4% 50 ML IV ONE (10:45)
[2023-05-28] MEDS ORDERED: Potassium Bicarbonate/Citrate 20 MEQ Effervescent TAB PO SCH ×2 (12:00→19:30)
[2023-05-28] MEDS ORDERED: NYSTATIN POWDER15 GM TOP (12:30)
[2023-05-28] MEDS ORDERED: BACTROBAN 22GM22 GM TP (12:32)
[2023-05-28] MEDS ORDERED: DESENEX TOP (12:35)
--- NOTE | 2023-05-28 17:33 | NUR ---
City Editor met with patient to discuss discharge planning. Patient lives in [place] and has been at [facility] [place] following a fall which resulted in a femur fracture. Patient plans to return to [facility] for continued rehab and the goal of returning home. Patient sees Dr. French for primary care and normally obtains medications from [facility]. Patient has an electric wheelchair but just got clearance from her surgeon to start walking with a walker. Patient provided copy of her DPOA-, which lists her son, Robert as primary agent. SW placed copy on chart. SW contacted [facility] and faxed clinical updates. Discharge Plan: [facility]F
--- NOTE | 2023-05-28 18:30 | NUR ---
BEDSIDE SHIFT REPORT RECEIVED BY EFRAÍN AMBRIZ. PATIENT SITTING UP IN BED EATING DINNER. PATIENT DENIES NEEDS OR CONCERNS AT THIS TIME.
[2023-05-28] MEDS ORDERED: *Potassium Replacement Protocol MC SCH (19:30)
--- NOTE | 2023-05-28 22:43 | NUR ---
IV SITE TO RIGHT AC WENT BAD. TEGADERM SATURATED IN BLOOD, IV CATHETER HALF WAY OUT. THIS NURSE DISCONTINUED IV. PRESSURE APPLIED TO SITE. ECCHYMOSIS NOTED TO AC AROUND IV PLACEMENT. COVERED WITH GUAZE AND COBAN. WILL MONITOR
[2023-05-29] VITALS (11 sets, daily range): BP systolic 114–132; BP diastolic 73–81; PULSE 91–113; TEMP 97.9–98.2
--- NOTE | 2023-05-29 06:34 | NUR ---
PATIENT RESTING IN BED WATCHING TV. DRSG CHANGE TO BLE. LARGE AMOUNT OF CLEAR FLUID WEEPING FROM BLE AND BLISTERS. SOME YELLOW DRAINAGE NOTED. PATIENT WAS UNABLE TO ASSIST IN HOLDING UP LEGS. PATIENT DENIES NEEDS OR CONCERNS AT THIS TIME.
[2023-05-29 06:35] LABS: BASO % 0.4 % (0.0-2.0); EOS # 0.3 K/mm3 (0.0-0.7); EOS % 3.9 % (0.0-4.0); GRAN # 4.5 K/mm3 (1.4-6.5); GRAN % 55.1 % (42.2-75.2); HEMOGLOBIN 10.4 g/dl (12.5-16.0); LYMPH # 2.3 K/mm3 (1.2-3.4); MEAN CELL VOLUME 77 fl (80.0-100.0); MEAN CORPUSCULAR HEMOGLOBIN 24 pg (27-31); MEAN CORPUSCULAR HGB CONC 31 g/dl (33.0-37.0); MEAN PLATELET VOLUME 10.6 fl (7.4-10.4); MONO % 12.2 % (1.7-9.3); PLATELET COUNT 264 K/mm3 (130-400); RED BLOOD COUNT 4.33 M/mm3 (4.10-5.30); REDCELL DISTRIBUTION WIDTH-CV 18.5 % (11.5-14.5)
--- NOTE | 2023-05-29 06:42 | NUR ---
THIS NURSE ASSISTED OTHER STAFF IN HELPING HER UP IN BED. PATIENT IS NOW TEARFUL SAYING SHE IS NOT USED TO BEING THIS DEPENDENT ON PEOPLE. NURSES REASSURED THIS PATIENT. PATIENT INFORMED THERAPY WILL BE HERE TODAY
[2023-05-29 06:56] LABS: CALCIUM 9.2 mg/dL (8.4-10.2); CREATININE, serum 1.21 mg/dL (0.57-1.11); POTASSIUM 3.9 mmol/L (3.5-4.5)
[2023-05-29 06:57] LABS: HEMATOCRIT 33.3 % (37.0-47.0)
--- NOTE | 2023-05-29 09:00 | NUR ---
Patient resting in bed, states she is uncomfortable and wants to move to the chair. Call placed to PT asking for help and a lift. Bariatric chair moving from room 301 to pt room 359. Awaiting for help to transfer pt. BLE dressing changed, no drainage noticed. Assessment completed. PT used Bedpan, small loose bron BM. Hygiene provided. No further needs at this time. Call light within reach.
--- NOTE | 2023-05-29 16:30 | NUR ---
Patient has multiple reddened areas in the folds of the belly, under chest, and folds in her arms, armppits. Desemex applied.
--- NOTE | 2023-05-29 21:00 | NUR ---
Patient resting in bed. Rates her pain at 8/1, prn pain meds given. Denies any other needs at this time. Assessment compelte. IV in right AC flushes with no complications. Call light and personal items in reach. Bed in low position.
[2023-05-30] VITALS (13 sets, daily range): BP systolic 106–127; BP diastolic 71–84; PULSE 95–108; TEMP 97.5–98.2
[2023-05-30 05:43] LABS: BASO % 0.5 % (0.0-2.0); EOS # 0.4 K/mm3 (0.0-0.7); EOS % 5.3 % (0.0-4.0); GRAN # 3.9 K/mm3 (1.4-6.5); GRAN % 50.2 % (42.2-75.2); HEMOGLOBIN 10.2 g/dl (12.5-16.0); LYMPH # 2.4 K/mm3 (1.2-3.4); LYMPH % 31.1 % (20.0-51.0); MEAN CELL VOLUME 78 fl (80.0-100.0); MEAN CORPUSCULAR HEMOGLOBIN 24 pg (27-31); MEAN CORPUSCULAR HGB CONC 31 g/dl (33.0-37.0); MEAN PLATELET VOLUME 10.2 fl (7.4-10.4); MONO % 12.6 % (1.7-9.3); PLATELET COUNT 264 K/mm3 (130-400); RED BLOOD COUNT 4.31 M/mm3 (4.10-5.30); REDCELL DISTRIBUTION WIDTH-CV 18.3 % (11.5-14.5)
[2023-05-30 05:54] LABS: HEMATOCRIT 33.4 % (37.0-47.0)
[2023-05-30 05:58] LABS: CALCIUM 9.3 mg/dL (8.4-10.2); CREATININE, serum 1.23 mg/dL (0.57-1.11); POTASSIUM 3.6 mmol/L (3.5-4.5)
--- NOTE | 2023-05-30 06:00 | NUR ---
Patient resting in bed. Denies any pain or needs at this time. No changes over night other than patient got a bed change and new gown and ACCU checks changed from Q4H to ACHS. Call light and personal items in reach. Bed in low position.
[2023-05-30] MEDS ORDERED: Insulin Aspart (NovoLOG) SQ SCH (08:00)
[2023-05-30] MEDS ORDERED: Potassium Bicarbonate/Citrate 20 MEQ Effervescent TAB PO SCH (09:15)
--- NOTE | 2023-05-30 09:20 | NUR ---
Patient is resting in bed with eyes closed, easily arousable, just finished breakfast. Alert and orineted x 4, tachycardic, asks for pain medication 10/26, PRN provided. Assessment complted, meds given, desemex applied. No further needs at this time. Call light within reach.
--- NOTE | 2023-05-30 13:44 | NUR ---
neonatal social worker faxed clincial updates to [facility]. Discharge Plan: [facility] Wednesday
--- NOTE | 2023-05-30 21:50 | NUR ---
Patient resting in bed. Rates her pain at 7/10 at this time, prn pain meds given. Fresh water provided, denies any other needs. Assessment complete. IV in left upper arm and right AC flushes with no complications. Call light and personal items in reach. Bed in low position.
[2023-05-31] VITALS (7 sets, daily range): BP systolic 94–127; BP diastolic 65–88; PULSE 97–112; TEMP 97.6–98.5
--- NOTE | 2023-05-31 06:00 | NUR ---
Patient resting in bed. Rates pain at 8/10 at this time, prn pain meds given. Fresh water provided, denies any other needs at this time. No changes over night. Call light and personal items in reach. Bed in low position.
[2023-05-31] MEDS ORDERED: CARDIZEM CD 12120 MG PO (09:18)
[2023-05-31] MEDS ORDERED: Potassium Bicarbonate/Citrate 20 MEQ Effervescent TAB PO ONE (09:30)
[2023-05-31] MEDS ORDERED: DAZIDOX10 MG PO (09:33)
[2023-05-31] MEDS ORDERED: NOVOLOG 100U100 U/M1 SQ (09:33)
--- NOTE | 2023-05-31 10:41 | NUR ---
PATIENT SITTING UP IN BED REPORTING INCREASED ANXIETY AND DISPLAYING SOME LABORED BREATHING. DISCUSSED WITH PATIENT THE CAUSE OF HER ANXIETY, STATES SHE IS CONCERNED THAT HER HALF-WAY IS NOT GOING TO READMIT HER WHEN DISCHARGED FROM HOSPITAL. ADMINISTERED MORNING MEDS ORDERED. REPOSITIONED PATIENT IN BED AND BROUGHT IN MORE ICE WATER AT HER REQUEST. WILL CONTINUE TO MONITOR
--- NOTE | 2023-05-31 12:21 | NUR ---
REPORT GIVEN TO NING AT [facility] AT THIS TIME. ALL QUESTIONS ANSWERED.
--- NOTE | 2023-05-31 14:38 | NUR ---
IV, ARREGUIN AND TELEMETRY DISCONTINUED. PATIENT HELPED INTO PERSONAL WHEELCHAIR VIA LIFT. PATIENT ESCORTED OFF OF UNIT BY VIA [facility] STAFF WITH PERSONAL BELONGINGS AND DISCHARGE PAPERWORK.
--- NOTE | 2023-05-31 17:26 | NUR ---
terrazzo worker was notified patient is medically stable to return to [facility]. [facility] requested nursing contact their nurse. JOHANN provided contact information to nurse. SW was notified by nursing the facility just asked for discharge information. SW contacted [facility] whom expressed they had not heard from our nurse yet. They wanted to know if patient was needing cardioversion during this hospital stay. JOHANN met with nursing whom confirmed patient does not need this during this stay. SW faxed discharge orders and contacted [facility] to provide transport time when they were able. SW was notified by nursing that patient is unable to be transported by facility due to her size. Patient already scheduled transportation with the [facility] transportation to pick her up at 2:30 pm. SW confirmed with the nursing facility that she has this scheduled and they are aware. SW met with patient whom confirmed the above information and that she notified the nursing facility. SW reviewed the important message from Medicare with patient. Patient understood, signed. SW made a copy, placed original in the chart and provided the copy to the patient. Discharge plan: SNF- [facility]
== END 2023-05-31 14:41 | DRG 291 ==
LOC: COL.ER 16:47 → MEDICAL 20:19
PROVIDERS: Nurse Practitioner Family; Personal Emergency Response Attendant; ADMIT Internal Medicine
DX: I11.0 Hypertensive heart disease with heart failure (principal); I50.33 Acute on chronic diastolic (congestive) heart failure; Z68.45 Body mass index [BMI] 70 or greater, adult; I25.10 Atherosclerotic heart disease of native coronary artery without angina pectoris; F41.9 Anxiety disorder, unspecified; G47.33 Obstructive sleep apnea (adult) (pediatric); F31.9 Bipolar disorder, unspecified; E66.01 Morbid (severe) obesity due to excess calories; E11.9 Type 2 diabetes mellitus without complications; E78.5 Hyperlipidemia, unspecified; E87.6 Hypokalemia; K21.9 Gastro-esophageal reflux disease without esophagitis; I89.0 Lymphedema, not elsewhere classified; E83.42 Hypomagnesemia; I48.0 Paroxysmal atrial fibrillation; J44.89 Other specified chronic obstructive pulmonary disease; I08.1 Rheumatic disorders of both mitral and tricuspid valves; S80.822A Blister (nonthermal), left lower leg, initial encounter; S80.821A Blister (nonthermal), right lower leg, initial encounter; I95.9 Hypotension, unspecified; L30.4 Erythema intertrigo; Z87.891 Personal history of nicotine dependence; Z88.6 Allergy status to analgesic agent; I25.2 Old myocardial infarction; Z95.5 Presence of coronary angioplasty implant and graft; Z90.710 Acquired absence of both cervix and uterus; Z79.4 Long term (current) use of insulin; Z79.899 Other long term (current) drug therapy; Z79.82 Long term (current) use of aspirin; Z79.01 Long term (current) use of anticoagulants; Z23 Encounter for immunization
CPT/HCPCS: G0378; J1815; J1940; J3475

== ENCOUNTER 2023-08-12 11:04 | Day surgery (SDC) | payer MEDICARE, MEDICAID ==
[~2023-08-12] VITALS: Ht 165.2 cm; Wt 146.4 kg
[2023-08-12] VITALS (9 sets, daily range): BP systolic 81–110; BP diastolic 53–74; PULSE 94–105; TEMP 98
[~2023-08-12 11:04] MED LIST changes: +00186-0370-20 IH; +BACTROBAN 22GM22 GM TP; +BACTROBAN15 GM TOP; +BREZTRI AEROS10.7 GM IH; +BUSPAR10 MG PO; +CARDIZEM CD 12120 MG PO; +CARDIZEM CD 18180 MG PO; +COLACE 100100 MG/CAP PO; +DAZIDOX10 MG PO; +DESENEX TOP; +DOXYCYCLINE 10100 MG PO; +ELIQUIS 5MG PO; +HUMALOG100 U/ML SQ; +K-TAB20 PO; +LASIX 40MG TABL40 MG PO; +LR 1,000 ML IV SCH; +LYRICA 100MG C100 M1 PO; +NOVOLOG 100U100 U/M1 SQ; +NYSTATIN POWDER15 GM TOP; +NYSTATIN POWDER30 GM TOP; +OZEMPIC0.25 MG/02 SQ; +PROBIOTIC ACID1 EAC3 PO; +PROBIOTIC-SUNMARK; +THEO-24 30300 MG/CAP PO; +TRIAMC 0.025 454 TOP; +WELLBUTRIN XL300 M1 PO
[2023-08-12 12:37] LABS: HEMOGLOBIN 11.4 g/dl (12.5-16.0); MEAN CELL VOLUME 76 fl (80.0-100.0); MEAN CORPUSCULAR HEMOGLOBIN 23 pg (27-31); MEAN CORPUSCULAR HGB CONC 30 g/dl (33.0-37.0); MEAN PLATELET VOLUME 10.6 fl (7.4-10.4); PLATELET COUNT 218 K/mm3 (130-400); RED BLOOD COUNT 5.01 M/mm3 (4.10-5.30); REDCELL DISTRIBUTION WIDTH-CV 22.7 % (11.5-14.5)
[2023-08-12 12:39] LABS: INR 1.7 (0.8-3.0); PROTHROMBIN TIME 18.4 SECONDS (9.7-12.8)
[2023-08-12 12:41] LABS: PARTIAL THROMBOPLASTIN TIME 37.8 SECONDS (26.0-37.0)
[2023-08-12] MEDS ORDERED: HUMALOG100 U/ML SQ (12:46)
[2023-08-12] MEDS ORDERED: JARDIANCE10 PO (12:48)
[2023-08-12] MEDS ORDERED: PERCOCET 325 MG1 TA2 PO (12:52)
[2023-08-12 12:53] LABS: CALCIUM 10.3 mg/dL (8.4-10.2); CREATININE, serum 1.63 mg/dL (0.57-1.11); MAGNESIUM 1.8 mg/dL (1.6-2.6); POTASSIUM 5.7 mEq/L (3.5-4.5)
[2023-08-12] MEDS ORDERED: WEGOVY0.25 MG/0. SQ (12:54)
[2023-08-12] MEDS ORDERED: ALDACTONE50 MG PO (12:55)
[2023-08-12] MEDS ORDERED: ASPIRIN 81M81 MG/TA2 PO (12:59)
[2023-08-12] MEDS ORDERED: CARDIZEM LA120 MG PO (13:00)
[2023-08-12] MEDS ORDERED: FLEXERIL 1010 MG/TAB PO (13:01)
[2023-08-12 13:16] LABS: THYROID STIMULATING HORMONE 3.587 uIU/mL (0.350-4.940)
--- NOTE | 2023-08-12 14:03 | NUR ---
Bedside report and handoff of care to Melisa RN after cardioversion with Dr. Almendarez. Pt is awake and alert, is in sinus rhythm/tach with rate 100; Shanti has been able to drink some water with no problem swallowing. Please see moderate sedation form for record of vital signs measured and interventions implemented during cardioversion and immediate recovery period.
[2023-08-12] MEDS ORDERED: PACERONE400 MG PO (14:29)
--- NOTE | 2023-08-12 16:25 | NUR ---
Discharge instructions given to pt.Pt escorted out via her electric wheelchair by this nurse.Report called to nainaNurse at [facility].
== END 2023-08-13 08:52 ==
LOC: COL.CAR 11:04
PROVIDERS: Internal Medicine Cardiovascular Disease
DX: I48.0 Paroxysmal atrial fibrillation (principal); G47.33 Obstructive sleep apnea (adult) (pediatric); E66.01 Morbid (severe) obesity due to excess calories; Z79.891 Long term (current) use of opiate analgesic
CPT/HCPCS: J2704